=== PATIENT | female | born 1960 | race Caucasian/White ===

== ENCOUNTER 2021-09-26 04:39 | Day surgery (SDC) | payer BC ==
[2021-09-21 13:26] VITALS: BMI 31.3
[2021-09-26 12:56] VITALS: TEMP 98.4
[2021-09-26 13:57] VITALS: BP 151/87; PULSE 64
[2021-09-26 15:14] LABS: CALCIUM 9.5 mg/dL (8.5-10.1)
[2021-09-26 15:15] LABS: BLOOD UREA NITROGEN 9.8 mg/dL (7-18); MAGNESIUM 2.3 mg/dL (1.8-2.4)
[2021-09-26 15:18] LABS: CREATININE 0.6 mg/dL (0.55-1.3); PHOSPHOROUS 3.8 mg/dL (2.5-4.9)
== END 2021-09-26 15:38 | disposition home or self-care (01) ==
LOC: JASU-ENDO 04:39
PROVIDERS: ATTEND Internal Medicine Gastroenterology
PROC: 0DJD8ZZ Inspection of Lower Intestinal Tract, Via Natural or Artificial Opening Endoscopic (ICD-10-PCS; principal; 2021-09-26 11:15)
DX: R10.32 Left lower quadrant pain (principal); R00.1 Bradycardia, unspecified; Z53.8 Procedure and treatment not carried out for other reasons; K64.8 Other hemorrhoids; K57.30 Diverticulosis of large intestine without perforation or abscess without bleeding; I10 Essential (primary) hypertension; E11.9 Type 2 diabetes mellitus without complications; Z79.84 Long term (current) use of oral hypoglycemic drugs
CPT/HCPCS: 36415; 80048; 82962; 83735; 84100; 93005; 93010